=== PATIENT | female | born 2000 | race Two or more races ===

== ENCOUNTER 2024-05-22 18:37 | Observation (INO) | payer MEDICAID, SELFPAY ==
[2024-05-22 18:48] VITALS: BP 112/68; PULSE 65
[2024-05-22 19:10] VITALS: BP 112/68; PULSE 65; RESP 17; RESP 99; TEMP 36.8
[2024-05-22 19:13] VITALS: TEMP 36.8
[2024-05-22 19:17] VITALS: BMI 30.8
== END 2024-05-22 21:03 | disposition home or self-care (01) ==
PROVIDERS: Admitting Provider Specialist; Visit Provider Specialist
DX: O47.1 False labor at or after 37 completed weeks of gestation (principal); Z3A.39 39 weeks gestation of pregnancy
CPT/HCPCS: 59025; 59899; G0378

== ENCOUNTER 2024-05-23 05:03 | Inpatient (IN) | payer MEDICAID, SELFPAY ==
[2024-05-23] VITALS (16 sets, daily range): BP systolic 105–130; BP diastolic 59–87; PULSE 77–136; RESP 16–97; TEMP 36.7–37.1; O2SAT 98–99; BMI 30.8
[2024-05-23 05:53] LABS: Basophils % (Auto) 0 % (0-2.5); Eosinophils % (Auto) 0 % (0-10); Hematocrit 35.3 % (36.0-46.0); Hemoglobin 12.1 g/dL (12.0-16.0); Immature Granulocytes % (Auto) 0 % (0-0); Immature Granulocytes Auto 0.04 Thou/mm3 (0.00-0.00); Lymphocytes % (Auto) 12 % (10-50); Mean Corpuscular HGB Conc 34.3 g/dl (31.0-37.0); Mean Corpuscular Hemoglobin 27.1 pg (25.0-35.0); Mean Corpuscular Volume 79 fL (80-100); Monocytes # (Auto) 0.3 Thou/mm3 (0.0-0.8); Monocytes % (Auto) 3 % (0-12); Neutrophils # (Auto) 7.6 Thou/mm3 (1.8-7.7); Neutrophils % (Auto) 85 % (37-80); Nucleated Red Blood Cell % 0 /100 WBC (0); Platelet Count 379 Thou/mm3 (140-440); RDW Standard Deviation 36.6 fL (36.4-46.3); Red Blood Count 4.46 Miln/mm3 (4.00-5.20); White Blood Count 8.9 Thou/mm3 (3.6-11.0)
[2024-05-23 06:29] LABS: Syphilis Nonreactive (Nonreactive)
[2024-05-23] MEDS: MINERAL OIL 30 ML UDC TOP (06:37)
[2024-05-23] MEDS: OXYTOCIN in NS 20 units 20 UNIT/1,000 ML BAG 125 UNIT IV (06:38)
[2024-05-23] MEDS: LIDOCAINE HCL 1% 20 ML VIAL INFL (06:38)
--- NOTE | 2024-05-23 07:03 | ESDS_ITS ---
DS: Providers Provider Date of admission: 05/23/24 05:26 Primary care physician: Physician No Primary/Family Admitting Provider: Juve Guzmán MD Attending Provider on Admission: Juve Guzmán MD Attending Provider on DC: Juve Guzmán MD Discharging Provider: Juve Guzmán MD DS: Diagnosis Problem List Completed Was Problem List Reviewed/Reconciled?: Yes Summary/Hosp Course Time Spent with Patient Time attestation: Total time spent providing and/or coordinating discharge services: Exam Vital Signs Temp Pulse Resp BP 98.2 F 86 18 108/61 05/23/24 05:08 05/23/24 06:59 05/23/24 05:08 05/23/24 06:59 Discharge Plan Plan Patient Disposition: HOME (Self Care) Patient condition on transfer: Stable Prescriptions/Referrals Prescriptions/Med Rec: New ibuprofen 600 mg tablet 600 mg PO Q6H PRN (Reason: pain) Qty: 30 0RF Continued Vitamin 27 mg iron- 800 mcg tablet 1 tab PO QDAY Referrals: No Primary/Family,Physician [Primary Care Provider] - Patient/Caregiver Discharge Instructions Discharge Activity: activity as tolerated Other Discharge Activity Instructions:: Follow up office 6 weeks. Print Language: Setswana Stand Alone Forms: [facility] Award Info., Patient Portal Info Letter Discharge Order Discharge Orders: Discharge (Routine); Ordered 05/24/24 Ordered By: Juve Guzmán Planned Discharge Date 05/24/24
--- NOTE | 2024-05-23 07:03 | PD.LDDELS ---
Data (Amanda) Data : 3 Para: 0 Term: 0 : 0 : 2 Delivery Data (Amanda) Labor Data ROM Date: 05/23/24 ROM Time: 06:03 Rupture Type: AROM Amniotic Fluid: Clear Delivery Data EDC: 05/28/24 EDC calculated by:: LMP/early US confirmation Labor Onset Stage 1 Date: 05/23/24 Labor Onset Stage 1 Time: 03:00 Labor Onset Stage 2 Date: 05/23/24 Labor Onset Stage 2 Time: 05:51 Delivery Date: 05/23/24 Delivery Time: 06:28 Gestational age (weeks): 39 Gestational age (days): 2 Placenta Delivery Date: 05/23/24 Placenta Delivery Time: 06:33 Delivered by: Juve Guzmán Delivery nurse: Veda Mccrary Other staff at delivery: Nursery Nurse Other staff at delivery: Marichuy Ramirez Delivery Method Delivery: Vaginal Delivery Type: Spontaneous Presentation: Vertex Position: OA Anesthesia Type Primary Anesthesia: Local Placenta Placenta Delivery: Spontaneous Placenta Cultures Obtained: No Placenta Sent for Examination: No Cord Sample: Cord Blood Obtained Lacerations #1: Perineal: 2nd degree Perineal repair Sutures used for repair: 3.0 Chromic Umbilical Cord Nuchal Cord: x1 Body Cord: x1 Additional Procedures Placement of vaginal gauze ribbon 2 inch trailing out the opening of the vaginal. Complications Complications: None [place] Data (Amanda) Data Infant Gender: Female Weight Grams: 3260 1 Minute Total: 8 5 Minute Total: 9
[2024-05-23] MEDS: TRANEXAMIC ACID 1,000 MG IVPB 1,000 MG/100 ML BAG 200 MG IV ×2 (07:06→08:17)
[2024-05-23] MEDS: IBUPROFEN TAB 400 MG TABLET 800 MG PO ×2 (07:15→17:44)
--- NOTE | 2024-05-23 07:50 | ESHP_ITS ---
RE: LIMA DAVID : 2000 DATE OF ADMISSION: 05/23/2024 HISTORY OF PRESENT ILLNESS: This is a 24-year-old 3, para 0-0-2-0 with a due date of 05/28 with intrauterine of 39 weeks and 2 days. She presents to labor and delivery complaining of labor pains and was noted to be 8 cm dilated. She quickly became fully dilated and delivered a viable female infant. Apgars 8 and 9. Over second-degree perineal laceration with 300 mL of blood loss. Her Group B strep was negative. Her chlamydia test on 05/02/2024 was negative. She does have a history of chlamydia treated on 02/02/2024, during her subsequent repeat test of cure at 36 weeks was negative. PAST MEDICAL HISTORY: Depression, chlamydia cervicitis, iron deficiency anemia. ALLERGIES: NO KNOWN DRUG ALLERGIES. MEDICATIONS: 1. multivitamin 1 p.o. daily. 2. Ferrous sulfate 325 mg 1 p.o. daily. SOCIAL HISTORY: She denies any alcohol, drug use, or smoking. OBSTETRIC HISTORY: 06/2020, spontaneous , first trimester, no D and C. 07/2022, spontaneous , first trimester, with D and C. PAST SURGICAL HISTORY: D and C on 07/31/2022 for incomplete . REVIEW OF SYSTEMS: She denies any chest pain, palpitations, cough, fever, shortness of breath, or lower extremity pain. She denies any headache, change in vision, or right upper quadrant pain. PHYSICAL EXAMINATION: Vital Signs: Blood pressure is 108/67, heart rate 81, respirations 18, temperature 98.2. HEENT: Oropharynx and sclerae are clear. Lungs: Clear to auscultation bilaterally. Heart: Regular rate and rhythm. Abdomen: Fundus at the umbilicus firm. Perineum status post second-degree perineal laceration repair. Extremities: Nontender. Skin: No gross rashes or lesions. Neurologic: No focal deficits. ASSESSMENT AND PLAN: day #0, status post spontaneous vaginal delivery. PLAN: care. Remove vaginal gauze at 1800. DT: 07:08:48 TT: 07:29:00 Ref: [id number] - TID: [id number]
[2024-05-23] MEDS: BENZO/LANO/ALOE (Dermoplast) 60 GM CAN 1 SPRAY TOP (08:22)
[2024-05-23] MEDS: ACETAMINOPHEN 325 MG TABLET 650 MG PO ×2 (09:02→15:11)
[2024-05-23 14:10] LABS: Basophils % (Auto) 0 % (0-2.5); Eosinophils % (Auto) 0 % (0-10); Hematocrit 31.6 % (36.0-46.0); Hemoglobin 10.4 g/dL (12.0-16.0); Immature Granulocytes % (Auto) 0 % (0-0); Immature Granulocytes Auto 0.05 Thou/mm3 (0.00-0.00); Lymphocytes # (Auto) 1.6 Thou/mm3 (1.0-4.8); Lymphocytes % (Auto) 11 % (10-50); Mean Corpuscular HGB Conc 32.9 g/dl (31.0-37.0); Mean Corpuscular Hemoglobin 26.9 pg (25.0-35.0); Mean Corpuscular Volume 82 fL (80-100); Monocytes % (Auto) 6 % (0-12); Neutrophils # (Auto) 12.7 Thou/mm3 (1.8-7.7); Neutrophils % (Auto) 83 % (37-80); Nucleated Red Blood Cell % 0 /100 WBC (0); Platelet Count 344 Thou/mm3 (140-440); RDW Standard Deviation 38.3 fL (36.4-46.3); Red Blood Count 3.86 Miln/mm3 (4.00-5.20); White Blood Count 15.3 Thou/mm3 (3.6-11.0)
[2024-05-24] MEDS: IBUPROFEN TAB 400 MG TABLET 800 MG PO (03:08)
[2024-05-24 03:49] VITALS: BP 98/58; PULSE 70; RESP 16; TEMP 36.6; O2SAT 99
--- NOTE | 2024-05-24 06:44 | ESPR_ITS ---
RE: LIMA DAVID : 2000 DATE OF SERVICE: 05/24/2024 SUBJECTIVE: The patient denies any problem or complaint. She is voiding and ambulating and tolerating a regular diet and passing flatus. She denies any excessive vaginal bleeding. She denies any dizziness or lightheadedness. She denies any chest pain, palpitations, shortness of breath, or lower extremity pain. OBJECTIVE: Vital Signs: Blood pressure 98/58, heart rate 70, respirations 16, temperature 97.8, pulse oximetry is 99% on room air. Lungs: Clear to auscultation bilaterally. Heart: Regular rate and rhythm. Abdomen: Fundus is firm, nontender. Extremities: Nontender. LABORATORY DATA: Hemoglobin pre-delivery is 12.1. Post-delivery is 10.4. ASSESSMENT AND PLAN: 1. day #1, status post spontaneous vaginal delivery. 2. Vaginal packing was removed yesterday at 18:00. 3. No excessive vaginal bleeding. PLAN: Discharge home. Discharge instructions given. Follow up in the office in 6 weeks. DT: 06:19:45 TT: 06:43:00 Ref: [id number] - TID: [id number] [facility]
[2024-05-24 07:30] VITALS: BP 103/63; PULSE 65; RESP 14; TEMP 36.8; O2SAT 98
== END 2024-05-24 11:20 | disposition home or self-care (01) | DRG 560 ==
LOC: S4SX 07:00 → S4NX 08:51
PROVIDERS: Admitting Provider Specialist; Visit Provider Specialist
DX: O69.81X0 Labor and delivery complicated by cord around neck, without compression, not applicable or unspecified (principal); O69.82X0 Labor and delivery complicated by other cord entanglement, without compression, not applicable or unspecified; O70.1 Second degree perineal laceration during delivery; Z37.0 Single live birth; Z3A.39 39 weeks gestation of pregnancy
CPT/HCPCS: 36415; 59409; 85025; 86780; 86850; 86900; 86901; J2590; J3490; A9270

== ENCOUNTER 2024-07-01 13:16 | Emergency (ER) | payer MEDICAID, SELFPAY ==
[2024-07-01 13:51] VITALS: BP 127/84; PULSE 78; RESP 16; TEMP 37.3; O2SAT 99; BMI 26.2
--- NOTE | 2024-07-01 13:56 | XR_ITS ---
Examination: Pelvic ultrasound, transabdominal, complete Technique: Transabdominal ultrasound of the pelvis performed using grayscale imaging Date and time of exam: July 01, 2024 1428 hours INDICATIONS: 5 weeks with vaginal bleeding beginning 3 days ago FINDINGS: Uterus 7.0 cm endometrial stripe 1.1 cm No uterine mass Right ovary 4.1 cm arterial flow Left ovary obscured by bowel gas IMPRESSION: No uterine mass or retained products of conception
--- NOTE | 2024-07-01 13:57 | PD.EDRME ---
Rapid Medical Screening Exam [facility] Arrival date/time: 07/01/24 13:16 24-year-old female with no known medical history presents to the emergency room with a chief complaint of vaginal bleeding x 3 days. Patient states she had a normal vaginal delivery 5 weeks ago. Patient states she is going through 1 pad every 5 to 10 minutes. I have greeted and performed a focused initial assessment of this patient. A comprehensive ED assessment and evaluation of the patient, analysis of all test results, and completion of the medical decision making process will be conducted by additional ED providers. Chief Complaint: Vaginal Bleeding Vital signs: Vital Signs Temperature 99.2 F 07/01/24 13:51 Pulse Rate 78 07/01/24 13:51 Respiratory Rate 16 07/01/24 13:51 Blood Pressure 127/84 07/01/24 13:51 Pulse Oximetry (%) 99 07/01/24 13:51 Oxygen Delivery Method Room Air 07/01/24 13:51 Vital signs reviewed by provider: Yes
[2024-07-01 14:32] LABS: Basophils % (Auto) 0 % (0-2.5); Eosinophils # (Auto) 0.2 Thou/mm3 (0.0-0.5); Eosinophils % (Auto) 4 % (0-10); Hematocrit 31.3 % (36.0-46.0); Hemoglobin 10.7 g/dL (12.0-16.0); Immature Granulocytes % (Auto) 0 % (0-0); Immature Granulocytes Auto 0.01 Thou/mm3 (0.00-0.00); Lymphocytes # (Auto) 2.3 Thou/mm3 (1.0-4.8); Lymphocytes % (Auto) 47 % (10-50); Mean Corpuscular HGB Conc 34.2 g/dl (31.0-37.0); Mean Corpuscular Hemoglobin 26.5 pg (25.0-35.0); Mean Corpuscular Volume 78 fL (80-100); Monocytes # (Auto) 0.4 Thou/mm3 (0.0-0.8); Monocytes % (Auto) 7 % (0-12); Neutrophils % (Auto) 41 % (37-80); Nucleated Red Blood Cell % 0 /100 WBC (0); Platelet Count 367 Thou/mm3 (140-440); Red Blood Count 4.04 Miln/mm3 (4.00-5.20)
[2024-07-01 14:50] LABS: Partial Thromboplastin Time 28.8 Seconds (22.0-36.0)
[2024-07-01 14:53] LABS: Alanine Aminotransferase 31 U/L (10-49); Albumin, Serum 4.4 gm/dL (3.5-5.0); Albumin/Globulin Ratio 1.5 (1.2-2.2); Alkaline Phosphatase 151 U/L (46-116); Anion Gap 8 (7-16); Aspartate Amino Transferase 23 U/L (0-34); BUN/Creatinine Ratio 22 Ratio (12-20); Bilirubin,Total 0.2 mg/dL (0.3-1.2); Blood Urea Nitrogen 13 mg/dL (9-23); Calcium 8.7 mg/dL (8.3-10.6); Calcium (Corrected) 8.7 mg/dL (8.5-10.1); Carbon Dioxide 24.4 mMol/L (20.0-31.0); Chloride 111 mMol/L (98-107); Creatinine (Component) 0.6 mg/dL (0.6-1.3); Glucose 97 mg/dL (74-106); HCG,Qualitative Serum Negative; Osmolality,Calculated 285 (275-295); Potassium 3.9 mMol/L (3.4-5.1); Sodium 143 mMol/L (136-145); Total Protein 7.4 gm/dL (5.7-8.2); eGFR > 60 See Note
--- NOTE | 2024-07-01 19:52 | PC.NURSE ---
na x 1 1944.
--- NOTE | 2024-07-01 20:08 | PC.NURSE ---
[facility]
--- NOTE | 2024-07-01 20:46 | PC.NURSE ---
[facility]
== END 2024-07-01 22:28 | disposition left against medical advice (07) ==
LOC: SERX 14:57
PROVIDERS: Nurse Practitioner Family; Emergency Provider Family Medicine; PCP Physician Assistant
DX: N93.9 Abnormal uterine and vaginal bleeding, unspecified (principal); Z53.29 Procedure and treatment not carried out because of patient's decision for other reasons
CPT/HCPCS: 36415; 76856; 80053; 84703; 85025; 85730; 86850; 86900; 86901; 99281